=== PATIENT | female | born 1975 | race Caucasian/White ===

== ENCOUNTER → 2017-09-12 | Outpatient (CLI) | payer BC ==
[2006-04-05 08:00] VITALS: PULSE 81; TEMP 97.7
== END ==
LOC: MC.RAD 09:56
DX: Z12.31 Encounter for screening mammogram for malignant neoplasm of breast (principal)

== ENCOUNTER → 2018-10-05 | Outpatient (CLI) | payer BC ==
[2006-04-05 08:00] VITALS: PULSE 81; TEMP 97.7
== END ==
LOC: MC.RAD 07:54
DX: Z12.31 Encounter for screening mammogram for malignant neoplasm of breast (principal)

== ENCOUNTER → 2020-02-17 | Outpatient (CLI) | payer BC ==
[2006-04-05 08:00] VITALS: PULSE 81; TEMP 97.7
== END ==
LOC: MC.RAD 16:36
DX: Z12.31 Encounter for screening mammogram for malignant neoplasm of breast (principal)

== ENCOUNTER → 2022-01-02 | Outpatient (CLI) | payer OTHER ==
[2006-04-05 08:00] VITALS: PULSE 81; TEMP 97.7
== END ==
LOC: MC.RAD 07:58
DX: Z12.31 Encounter for screening mammogram for malignant neoplasm of breast (principal)